=== PATIENT | male | born 1985 | race Caucasian/White ===

== ENCOUNTER → 2017-05-21 | Outpatient (RCR) ==
[2014-05-07 23:59] VITALS: BMI 18.4
--- NOTE | 2017-04-29 13:24 | RS.OPPTEV2 ---
Date of Note: 04/28/17 Visit #: 1 Date of Evaluation: 04/28/17 Payer Source: Medicaid Surgery Performed?: No Treatment Diagnosis: R knee strain, pain in R knee History of Condition/Mechanism of Injury:: pt states pain began approx 2 weeks ago when knee "locked up" and "popped really loud." pt states he had a R meniscus repair in 2014. Prior Level of Function.....Patient was independent with: ADL's, Self Care, Ambulation/Mobility, Community Integration/Access Functional Limitations: Sleep, Lifting, Standing, Squatting, Ambulation Current Subjective/complaints:: pt states that his knee has been limiting his ability to run, ride bikes and play with his daughter. Treatment Side (optional): Right *Precautions: n/a Medical History Medical History: Unremarkable Surgical History Comments:: R meniscus repair Smoking Status: Former smoker Hx Home Medications: none Patient's Goals: pt goal is to be able to play with his daughter and be able to run again. Pain Assessment - Pain Description Pain Location: R knee Pain Description: Aching Current Pain Intensity: 0 at rest Worst Pain Intensity: 4-5/10 Other Comments regarding Pain:: states pain increases with resistance. Functional Outcome Measure LE Functional Scale: 33 (59%) - G Codes & Severity Modifier G Codes & Modifier: n/a Source of G Code score: n/a Observation - Observation Posture: Forward Head, Rounded Shoulders Handedness: Right Gait - Gait Pattern Gait Comments: pt demonstrates minimal antalgic gait, decreased stance time on R General Range of Motion: BUE WFL's. BLE hip WFL's, ankle WFL's , knees see knee eval Muscle Strength: BUE 5/5. LLE 5/5. RLE hip flex 5/5, knee flex/ext 4+/5, ankle DF/PF 5/5 Knee ROM: Bilaterally WFL's Knee Muscle Strength: Left WFL's - Right Knee Strength Right Knee Extension: 4+ Good + Right Knee Flexion: 4+ Good + - Special Tests Knee Anterior Drawer Test: Negative Right Knee Posterior Drawer Test: Negative Right Knee Valgus Stress Test: Negative Right Palpation Palpation Findings: Tenderness Comments:: R lat knee at lat tibia. hypermobility in R patella noted with movement medially. Sensation - Sensation Right Upper Extremity: Intact/Normal Left Upper Extremity: Intact/Normal Right Lower Extremity: Intact/Normal Left Lower Extremity: Intact/Normal Sensation Description: Within Normal Limits Balance - Sitting Balance Static Sitting Balance: Normal Dynamic Sitting Balance: Normal - Standing Balance Static Standing Balance: Normal Dynamic Standing Balance: Normal - Heat/Cryotherapy Treatment: Cryotherapy Comments:: R knee Interventions - Exercise/Activities/Manual Therapy Exercises/Activities: pt performed R knee QS, SAQ, LAQ, SLR x 10 reps Manual Therapy: n/a HOME EXERCISE PROGRAM: pt given written HEP including QS, QS with pillow, SAQ, SLR, LAQ, hip abd in sidelying - Objective Findings Observations,measurements,etc.: no edema noted in R knee - Charges Timed Code Treatment Minutes: 48 Total Treatment Time: 58 Procedures billed for this date of service:: eval low with Cold pack EVALUATION COMPLEXITY LEVEL EVALUATION COMPLEXITY LEVEL: HISTORY: Low (R knee pain), EXAM OF BODY SYSTEMS: Medium (pain, weakness), CLINICAL PRESENTATION: Medium (evolving), CLINICAL DECISION MAKING: Low Assessment Assessment: pt presents with pain in R knee with increased patellar mobility, crepitus noted in R knee with ROM. pt pain increases with ROM Patient Education: Home Exercise Program, Education of Plan of Care Rehab Potential: Good Short Term Goals Goal #1: pt report pain <5/10 with activity Goal to be met by: 05/09/17 Goal #2: pt with increased strength R knee as noted decreased patellar hypermobility Goal to be met by: 05/09/17 Assisted Goals Goal #1: pt with improved strength R knee 5/5 and independent with HEP Goal to be met by: 05/23/17 Goal #2: pt rate pain <2/10 with activity Goal to be met by: 05/23/17 Goal #3: pt amb community distances without pain or antalgic gait Goal to be met by: 05/23/17 Goal #4: Lower extremity functional score >45/80 Goal to be met by: 05/23/17 Plan - Treatment to be Provided Procedures: Therapeutic Exercises, Therapeutic Activity, Gait Training, Patient Education Modalities: Cryotherapy, Hot Packs - Treatment Plan Frequency: 3 X week Duration: 4 weeks ORDER # VISITS AND/OR THROUGH DATE: 05/23/17 - Treatment Code (1) Right knee pain Code(s): M25.561 - PAIN IN RIGHT KNEE Qualifiers: Chronicity: acute Qualified Code(s): M25.561 - Pain in right knee (2) Strain of right knee Code(s): S86.911A - STRAIN OF UNSP MUSC/TEND AT LOWER LEG LEVEL, RIGHT LEG, INIT Qualifiers: Encounter type: initial encounter Qualified Code(s): S86.911A - Strain of unspecified muscle(s) and tendon(s) at lower leg level, right leg, initial encounter
--- NOTE | 2017-05-01 10:55 | RS.OPPTDN ---
Subjective Date of Note: 05/01/17 Visit #: 2 Date of Evaluation: 04/28/17 Payer Source: Medicaid Treatment Diagnosis: R knee strain, pain in R knee Current Subjective/complaints:: pt states he feels like his knee is getting stronger. States he has been doing ex 2x a day as instructed and has had less pain and less instability. *Precautions: n/a Pain Assessment - Pain Description Pain Location: R knee Current Pain Intensity: 2/10 - Heat/Cryotherapy Treatment: Cryotherapy Comments:: R knee after ex x 10 mins Interventions - Exercise/Activities/Manual Therapy Exercises/Activities: pt performed R knee QS with pillow squeeze, SAQ, SLR, SLR with ext rotation x 2 sets of 10 reps. chair knee flex and LAQ with green tband , and forward and side lunges x 10 reps. pt reports some discomfort with LAQ. pt rode bike x 5 mins. Total minutes of Exercise: 30 Manual Therapy: n/a HOME EXERCISE PROGRAM: pt given written HEP including QS, QS with pillow, SAQ, SLR, LAQ, hip abd in sidelying. new ex given this visit and green tband for chair knee flex, LAQ as well as SLR with ext rotation. - Charges Timed Code Treatment Minutes: 37 Total Treatment Time: 45 Procedures billed for this date of service:: ex 2 and cold pack Assessment: pt with less c/o pain this visit. pt tolerated increased ex this visit. pt continues with crepitus noted with knee ROM. Patient Education: Home Exercise Program, Activity Modification, Education of Plan of Care Patient demonstrates compliance with HEP?: Yes Short Term Goals Goal #1: pt report pain <5/10 with activity Goal to be met by: 05/09/17 Progress towards Goal:: Progressing Comments:: reports pain 2/10 will reassess next visit Goal #2: pt with increased strength R knee as noted decreased patellar hypermobility Goal to be met by: 05/09/17 Progress towards Goal:: Progressing Comments:: Decreased patellar hypermobility noted this visit [facility] Goals Goal #1: pt with improved strength R knee 5/5 and independent with HEP Goal to be met by: 05/23/17 Progress towards goal: Progressing Goal #2: pt rate pain <2/10 with activity Goal to be met by: 05/23/17 Progress towards goal: Progressing Goal #3: pt amb community distances without pain or antalgic gait Goal to be met by: 05/23/17 Progress towards goal: Progressing Goal #4: Lower extremity functional score >45/80 Goal to be met by: 05/23/17 Plan PLAN OF CARE EXPIRES ON:: 05/23/17 ORDER # VISITS AND/OR THROUGH DATE: 05/23/17 PLAN: Continue to progress with ex, may try leg press next visit.
--- NOTE | 2017-05-05 10:26 | RS.OPPTDN ---
Subjective Date of Note: 05/05/17 Visit #: 3 Date of Evaluation: 04/28/17 Payer Source: Medicaid Treatment Diagnosis: R knee strain, pain in R knee Current Subjective/complaints:: Patient reports he is doing much better with exercise. *Precautions: n/a Pain Assessment - Pain Description Pain Location: Right knee and distal lateral hamstring tendon. Current Pain Intensity: mild Interventions - Exercise/Activities/Manual Therapy Exercises/Activities: QS ultiple reps. Assisted hamstring stretch and knee flexion. Isometric hip add with pillow. SAQ. Added 2# to SLR 4s/5reps and 1# SLR/VMO 2s/5reps. Began green theraband for resisted hip add and hip abd. In sitting, ham curl with green tband. Stationary bike x 5 mins, alt forward ans retro revolutions. Total minutes of Exercise: [id number] Manual Therapy: n/a HOME EXERCISE PROGRAM: pt given written HEP including QS, QS with pillow, SAQ, SLR, LAQ, hip abd in sidelying. new ex given this visit and green tband for chair knee flex, LAQ as well as SLR with ext rotation. Added hamstring stretch. - Charges Timed Code Treatment Minutes: 25mins Total Treatment Time: 30mins Procedures billed for this date of service:: EX2 Assessment: Patient demos some weakness with resistive exercise but reports noticeable improvement in stability and joint discomfort. 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 Goal #1: pt with improved strength R knee 5/5 and independent with HEP Goal to be met by: 05/23/17 Progress towards goal: Progressing Goal #2: pt rate pain <2/10 with activity Goal to be met by: 05/23/17 Progress towards goal: Progressing Goal #3: pt amb community distances without pain or antalgic gait Goal to be met by: 05/23/17 Progress towards goal: Progressing Goal #4: Lower extremity functional score >45/80 Goal to be met by: 05/23/17 Plan PLAN OF CARE EXPIRES ON:: 05/23/17 ORDER # VISITS AND/OR THROUGH DATE: 05/23/17 PLAN: Progress strengthening of the right LE to increase patients functional activity level.
--- NOTE | 2017-05-08 10:17 | RS.OPPTDN ---
Subjective Date of Note: 05/08/17 Visit #: 4 Date of Evaluation: 04/28/17 Payer Source: Medicaid Treatment Diagnosis: R knee strain, pain in R knee Current Subjective/complaints:: pt states he has had to take ibuprofen the last 2 days due to discomfort in R knee. *Precautions: n/a Pain Assessment - Pain Description Pain Location: R knee Pain Description: Aching Current Pain Intensity: 3/10 Interventions - Exercise/Activities/Manual Therapy Exercises/Activities: pt performed QS with focus on VMO with pillow, SLR with 2# wt, SLR with VMO without wt 2 sets of 10 reps. pt also performed resisted knee flex/ext x 10, isometric hip add with ball, in sitting hip abd/add, knee flex with green tband 2 sets of 10 reps each ex. pt rode bike x 5 mins forward and retro. Total minutes of Exercise: 36 Manual Therapy: n/a HOME EXERCISE PROGRAM: pt given written HEP including QS, QS with pillow, SAQ, SLR, LAQ, hip abd in sidelying. new ex given this visit and green tband for chair knee flex, LAQ as well as SLR with ext rotation. Added hamstring stretch. - Objective Findings Observations,measurements,etc.: no edema noted - Charges Timed Code Treatment Minutes: 38 Total Treatment Time: 45 Procedures billed for this date of service:: ex 2 Assessment: pt progressing with knee strength and decreased pain since eval. pt continues to require skilled PT for therex for LE strengthening and stretching. Patient Education: Home Exercise Program, Education of Plan of Care Patient demonstrates compliance with HEP?: Yes Short Term Goals Goal #1: pt report pain <5/10 with activity Goal to be met by: 05/09/17 (3/10) Progress towards Goal:: Met Goal #2: pt with increased strength R knee as noted decreased patellar hypermobility Goal to be met by: 05/09/17 Progress towards Goal:: Progressing [facility] Goals Goal #1: pt with improved strength R knee 5/5 and independent with HEP Goal to be met by: 05/23/17 Progress towards goal: Progressing Goal #2: pt rate pain <2/10 with activity Goal to be met by: 05/23/17 Progress towards goal: Progressing Goal #3: pt amb community distances without pain or antalgic gait Goal to be met by: 05/23/17 Progress towards goal: Progressing Goal #4: Lower extremity functional score >45/80 Goal to be met by: 05/23/17 (not tested this visit) Plan PLAN OF CARE EXPIRES ON:: 05/23/17 ORDER # VISITS AND/OR THROUGH DATE: 05/23/17 PLAN: plan to continue to progress with LE stengthening, stretching. May try leg press next visit.
--- NOTE | 2017-05-12 10:37 | RS.CXNS ---
Date of scheduled appointment: 05/12/17 Type: Cancel (Patient called to cancel appointment due to being sick.)
--- NOTE | 2017-05-15 10:33 | RS.OPPTDN ---
Subjective Date of Note: 05/15/17 Visit #: 5 Date of Evaluation: 04/28/17 Payer Source: Medicaid Treatment Diagnosis: R knee strain, pain in R knee Current Subjective/complaints:: Patient reports some increased swelling and joint tightness right knee today. States pain was worse yeseterday at 5-6/10. Reports pain down following exercise session. *Precautions: n/a Pain Assessment - Pain Description Pain Location: Right knee joint Pain Description: Tightness, Aching Pain Description: Tight, swollen Current Pain Intensity: 2-3/10 following exercise Other Comments regarding Pain:: Reports pain was 5-6/10 yesterday Interventions - Exercise/Activities/Manual Therapy Exercises/Activities: Bike x7mins. Patient QS and Ham sets. Isometric hip add with focus on IR and contraction of VMO. Added 2# to SLR, and 1# to SLR/VMO, all 2s/10reps. Red theraband for resistive ankle df, ham curl, hip add and hip abd, 2s/10reps each. Sitting, red theraband for ham curl, 3s/10reps. Lef press 75#, 25reps slow pace and short range. Ended with assisted stretching of bilateral hamstrings. Patient education of dx, mechanics, safety, self-care at home. Discussed Epsom salt soaks, continued intermittent use of ice, and exercise that does not stress the knee jiont. Total minutes of Exercise: 40mins/47mins Manual Therapy: n/a HOME EXERCISE PROGRAM: pt given written HEP including QS, QS with pillow, SAQ, SLR, LAQ, hip abd in sidelying. new ex given this visit and green tband for chair knee flex, LAQ as well as SLR with ext rotation. Added hamstring stretch. Isometric hip add, isometric ankle inversion with hip IR and activation of VMO. Alternate HS stretching positions. - Charges Timed Code Treatment Minutes: 40mins Total Treatment Time: 47mins Procedures billed for this date of service:: EX3 Assessment: Patient with swelling and tightness of the right knee, but continues to report improvement overall. Patient motivated to continue work on HEP. Patient Education: Body/Joint mechanics, Home Exercise Program, Home Safety, Activity Modification Comments: Patient given copy of additional exercises. Patient demonstrates compliance with HEP?: Yes Short Term Goals Goal #1: pt report pain <5/10 with activity Goal to be met by: 05/09/17 (2-3/10) Progress towards Goal:: Met Goal #2: pt with increased strength R knee as noted decreased patellar hypermobility Goal to be met by: 05/09/17 Progress towards Goal:: Progressing [facility] Goals Goal #1: pt with improved strength R knee 5/5 and independent with HEP Goal to be met by: 05/23/17 Progress towards goal: Progressing Goal #2: pt rate pain <2/10 with activity Goal to be met by: 05/23/17 Progress towards goal: Progressing Goal #3: pt amb community distances without pain or antalgic gait Goal to be met by: 05/23/17 Progress towards goal: Partially Met Goal #4: Lower extremity functional score >45/80 Goal to be met by: 05/23/17 (not tested this visit) Plan PLAN OF CARE EXPIRES ON:: 05/23/17 ORDER # VISITS AND/OR THROUGH DATE: 05/23/17 PLAN: Progress strengthening.
--- NOTE | 2017-05-21 10:02 | RS.OPPTDN ---
Subjective Date of Note: 05/21/17 Visit #: 6 Date of Evaluation: 04/28/17 Payer Source: Medicaid Treatment Diagnosis: R knee strain, pain in R knee Current Subjective/complaints:: Reports right knee pain aggravated following last session. States he is doing Epsom salt/warm water soaks and using ice which is decreasing pain and swelling. Reports he feels stronger overall. He agrees he will continue HEP following discharge. *Precautions: n/a Pain Assessment - Pain Description Pain Location: right knee Pain Description: Aching Current Pain Intensity: mild with some activity Interventions - Exercise/Activities/Manual Therapy Exercises/Activities: Patient QS and Ham sets. Isometric hip add with focus on IR and contraction of VMO. to SLR 2#, and 1# to SLR/VMO, all 2s/10reps. Red theraband for resistive ankle df, ham curl, hip add and hip abd, 2s/10reps each. Sitting, red theraband for ham curl, 3s/10reps. Ended with assisted stretching of bilateral hamstrings. Patient education of dx, mechanics, safety, self-care at home and gait pattern correction. Total minutes of Exercise: 30mins Manual Therapy: n/a HOME EXERCISE PROGRAM: pt given written HEP including QS, QS with pillow, SAQ, SLR, LAQ, hip abd in sidelying. new ex given this visit and green tband for chair knee flex, LAQ as well as SLR with ext rotation. Added hamstring stretch. Isometric hip add, isometric ankle inversion with hip IR and activation of VMO. Alternate HS stretching positions. - Objective Findings Observations,measurements,etc.: Full ROM right knee. - Charges Timed Code Treatment Minutes: 30mins Total Treatment Time: 30mins Procedures billed for this date of service:: EX2 Assessment: Patient has progressed well and will continue HEP following discharge. Patient Education: Body/Joint mechanics, Home Exercise Program, Home Safety, Activity Modification, Education of Plan of Care Patient demonstrates compliance with HEP?: Yes Short Term Goals Goal #1: pt report pain <5/10 with activity Goal to be met by: 05/09/17 (2/10) Progress towards Goal:: Met Goal #2: pt with increased strength R knee as noted decreased patellar hypermobility Goal to be met by: 05/09/17 Progress towards Goal:: Partially Met [facility] Goals Goal #1: pt with improved strength R knee 5/5 and independent with HEP Goal to be met by: 05/23/17 Progress towards goal: Progressing Goal #2: pt rate pain <2/10 with activity Goal to be met by: 05/23/17 Progress towards goal: Partially Met Goal #3: pt amb community distances without pain or antalgic gait Goal to be met by: 05/23/17 Progress towards goal: Partially Met Goal #4: Lower extremity functional score >45/80 Goal to be met by: 05/23/17 (not tested this visit) Plan PLAN OF CARE EXPIRES ON:: 05/23/17 ORDER # VISITS AND/OR THROUGH DATE: 05/23/17 PLAN: Discharge with HEP.
== END ==
PROVIDERS: ATTEND Orthopaedic Surgery
DX: S86.911D Strain of unspecified muscle(s) and tendon(s) at lower leg level, right leg, subsequent encounter (principal); M25.561 Pain in right knee

== ENCOUNTER 2018-01-15 13:09 | Outpatient (CLI) ==
[2014-05-07 23:59] VITALS: BMI 18.4
== END 2018-01-15 13:10 | disposition home or self-care (01) ==
LOC: RHC-LAB 13:09
PROVIDERS: ATTEND Nurse Practitioner Family
DX: Z00.00 Encounter for general adult medical examination without abnormal findings (principal)
CPT/HCPCS: 36415; 80053; 80061; 84443; 85025